=== PATIENT | female | born 2000 | race Caucasian/White ===

== ENCOUNTER 2024-08-19 09:54 | Outpatient (CLI) | payer BC, SELFPAY | END 2024-08-19 09:55 | disposition home or self-care (01) | PROVIDERS: Visit Provider Otolaryngology | DX: H91.91 Unspecified hearing loss, right ear (principal); H93.13 Tinnitus, bilateral; Z13.29 Encounter for screening for other suspected endocrine disorder | CPT/HCPCS: 84443; 86038; 86431; 86618 ==